=== PATIENT | female | born 1975 | race Two or more races ===

== ENCOUNTER 2021-02-06 05:45 | Day surgery (SDC) | payer OTHER ==
[2021-02-06] MEDS ORDERED: NAPR500T14 PO (10:07)
[2021-02-06] MEDS ORDERED: MORGIDOX100 MG PO (10:07)
== END 2021-02-06 12:45 | disposition home or self-care (01) ==
LOC: CIR.AMB 05:45
PROVIDERS: ATTEND Obstetrics & Gynecology
DX: N84.0 Polyp of corpus uteri (principal); Z20.822 Contact with and (suspected) exposure to COVID-19